=== PATIENT | female | born 1980 | race Caucasian/White ===

== ENCOUNTER 2023-10-01 11:49 | Emergency (ER) | payer MEDICAID ==
[2023-10-01] MEDS: Sodium Chloride 0.9% 1,000 ML IV ONE (12:21)
[2023-10-01] MEDS: Dexamethasone 4 MG/ML SDV IVPUSH ONE (12:21)
[2023-10-01] MEDS: diphenhydrAMINE 50 MG/ML SDV IVPUSH ONE (12:21)
[2023-10-01 13:18] VITALS: BP 148/58; PULSE 62
== END 2023-10-01 13:44 | disposition home or self-care (01) ==
LOC: JP.ED 11:49
DX: R07.89 Other chest pain (principal); T43.595A Adverse effect of other antipsychotics and neuroleptics, initial encounter; Z88.0 Allergy status to penicillin; Z88.5 Allergy status to narcotic agent
CPT/HCPCS: 96374; 96375; 99283; J1100; J1200; J7030